=== PATIENT | female | born 2000 | race Caucasian/White ===

== ENCOUNTER 2021-12-22 05:02 | Inpatient (IN) ==
--- NOTE | 2021-12-17 10:36 | Anesthesiology Consultation ---
Date of Service December 17, 2021 Assessment & Plan (1) Encounter for pre-operative examination: COVID screening: Per assessment on 12/17: No known COVID-19 positive contacts or current COVID-19 related symptoms. Travel screen negative. Patient vaccinated. Surgeon arranging preop COVID testing. Awaiting results. 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 History Surgery Operation Date: 12/22/21 07:30 Proposed Procedures p Section in LD - Analilia Benjamin MD s Post Tubal Ligation Labor & Delivery - Analilia Benjamin MD Height/Weight Height: 4 ft 11 in Weight: 94.801 kg Allergies Allergy/AdvReac Type Severity Reaction Status Date / Time No Known Allergies Allergy Verified 12/17/21 09:58 Medications Home Medications Medication Instructions Recorded Confirmed Last Taken prenat.vits,rajendra,[id number] 1 tab PO QAM 08/22/21 12/17/21 Unknown Past Medical History Medical History (Updated 12/17/21 @ 10:36 by Ml [place]) History of COVID-19 Dx 06/2021 > "mild" symptoms at time > resolved Past Family History Family History Other No family history of adverse response to anesthesia Past Surgical History Surgical History Hx of section x2 Social History Smoking Status: Never smoker Do You Dip or Chew Tobacco: No Hx Alcohol Use: No Hx Substance Use: No substance use type: does not use
[2021-12-22] MEDS ORDERED: CITRIC ACID/SODIUM CITRATE 15 ML UDC PO SCH (06:00)
[2021-12-22] MEDS ORDERED: ceFAZolin 2,000 MG in SYRINGE 0 ML IV SCH (06:00)
[2021-12-22] MEDS ORDERED: LACTATED RINGER'S 1,000 ML IV SCH ×2 (06:00→09:29)
[2021-12-22 06:03] LABS: Basophils # (auto) 0.02 K/uL (0-0.2); Basophils % (auto) 0.2 %; Eosinophils # (auto) 0.18 K/uL (0-0.5); Eosinophils % (auto) 2.2 %; Hematocrit (blood only) 33.3 % (37-47); Hemoglobin 11.1 g/dL (12.0-16.0); Immature Granulocytes # (auto) 0.09 K/uL (0.00-0.02); Immature Granulocytes % (auto) 1.1 %; Lymphocytes % (auto) 30.5 %; Mean Corpuscular Hemoglobin 28.5 pg (25-34); Mean Corpuscular Hgb Conc 33.3 g/dL (32-36); Mean Corpuscular Volume 85.6 fL (80-100); Mean Platelet Volume 10.6 fL (7.4-10.4); Monocytes # (auto) 0.59 K/uL (0.11-0.59); Monocytes % (auto) 7.2 %; Neutrophils # (auto) 4.83 K/uL (1.4-6.5); Neutrophils % (auto) 58.8 %; Platelet Count 215 K/uL (130-400); RDW Coefficient of Variation 14.1 % (11.5-14.5); RDW Standard Deviation 43.4 fL (36.4-46.3); Red Blood Count 3.89 M/uL (4.2-5.4); White Blood Count 8.21 K/uL (4.8-10.8)
[2021-12-22] MEDS ORDERED: MoRPHine SULFATE PF 1 MG/ML 10 ML AMP/VIAL ONE (07:20)
--- NOTE | 2021-12-22 07:27 | History & Physical Bridge Note ---
Date of Service December 22, 2021 History & Physical Bridge Note I have examined the patient, reviewed the History & Physical and in the interval since the performance of the History & Physical I have noted the following changes of clinical significance: no changes noted
[2021-12-22] MEDS ORDERED: ONDANSETRON INJ 2 MG/ML 2 ML VIAL IV PRN ×2 (07:33→09:29)
[2021-12-22] MEDS ORDERED: ePHEDrine sulfate 50 MG/ML AMP IV PRN (07:33)
[2021-12-22] MEDS ORDERED: NALOXONE HCL 0.08 MG in SYRINGE 1.8 ML IV PRN (07:33)
[2021-12-22] MEDS ORDERED: NALBUPHINE HCL INJ 10 MG/ML AMP IV PRN (07:33)
[2021-12-22] MEDS ORDERED: LACTATED RINGER'S 500 ML IV PRN (07:33)
[2021-12-22] MEDS ORDERED: diphenhydrAMINE 50 MG/ML VIAL IV PRN (07:33)
[2021-12-22] MEDS ORDERED: NALOXONE HCL 1 MG in SODIUM CHLORIDE 0.9% 1000ML 1,000 ML IV PRN (07:33)
[2021-12-22] MEDS ORDERED: NALOXONE HCL 0.4 MG/1 ML VIAL/CARP IV PRN (07:33)
[2021-12-22] MEDS ORDERED: METOCLOPRAMIDE HCL 20 MG in SODIUM CHLORIDE 0.9% 50 ML IV PRN (07:33)
[2021-12-22] MEDS ORDERED: MoRPHine SULFATE PF 1 MG/ML 10 ML AMP/VIAL INT SPINAL ONE (07:33)
[2021-12-22] MEDS ORDERED: PROMETHAZINE HCL 25 MG in SODIUM CHLORIDE 0.9% 50 ML IV PRN (07:33)
[2021-12-22] MEDS ORDERED: DC INTRASPINAL MORPHINE SCH (07:45)
[2021-12-22] MEDS ORDERED: NO NARCOTICS OR SEDATIVES SCH (07:45)
[2021-12-22] MEDS ORDERED: SODIUM CHLORIDE 0.9% 1000ML 1,000 ML IV SCH (07:45)
[2021-12-22 07:58] LABS: Appearance Urine Cloudy (Clear); Bacteria Urine Automated 2+ (Negative); Bilirubin Urine Negative (Negative); Blood Urine Negative (Negative); Color Urine Yellow; Epithelial Cell Urine Auto >30 /lpf (0-5); Glucose Urine UA Negative (Negative); Ketones Urine Negative (Negative); Leukocyte Esterase Urine 1+ (Negative); Nitrite Urine Negative (Negative); Protein Urine Negative (Negative); RBC Urine Automated 0-4 /hpf (0-4); Specific Gravity Urine 1.023 (1.000-1.030); Urobilinogen Urine Negative (Negative); pH Urine 6.5 (4.5-7.5)
[2021-12-22] MEDS ORDERED: ePHEDrine sulfate 50 MG/ML AMP ONE (08:24)
[2021-12-22] MEDS ORDERED: PHENYLEPHRINE 100MCG/ML 5ML SYR ONE (08:24)
[2021-12-22] MEDS ORDERED: OXYTOCIN 10 UNITS/ML 10ML VIAL ONE (08:24)
--- NOTE | 2021-12-22 08:50 | Operative Report ---
PG Post Operative Report Pre & Post Diagnosis Operation Date: 12/22/21 07:30 Pre-Op Diagnosis: History of Section, Request for Sterilization Post-Op Diagnosis: History of Section, Request for Sterilization I identified the patient and participated in the time-out.: Yes Procedure Operation Date: 12/22/21 07:30 Actual Procedures Repeat low transverse Section in L&D Bilateral Tubal Ligation Surgeon Analilia Benjamin MD Esthetician Spa Cee Estimated Blood Loss 600 Findings Consistent with Post-Op Diagnosis Specimens Placenta, Cord blood, Bilateral portions of fallopian tubes Drains Esqueda Anesthesia Type Spinal Complications none Disposition Accompanied Patient To Recovery: Yes Disposition: L&D Description of Procedure The patient was placed operating table in the supine position with a leftward tilt. She was prepped and draped in standard sterile fashion. The anesthetic was tested and found to be adequate. A time-out was held, identifying correct patient, procedure, positioning and preoperative antibiotics. There were no concerns. A Pfannenstiel skin incision was made with a knife and taken down to the underlying layer of fascia. The fascia was incised in the midline with the knife and taken out laterally with scissors. The superior edge of the fascial incision was grasped, elevated and dissected off the underlying rectus both superiorly and inferiorly. The muscles were bluntly in the midline. The peritoneum was entered bluntly. The incision was then stretched. The bladder retractor was placed. The vesicouterine peritoneum was identified, entered with scissors and taken out laterally with scissors. The bladder flap was created digitally. A hysterotomy incision was created transversely in the lower uterine segment, final entry being accomplished in a blunt manner with the well servicing rig operator's fingers. Clear amniotic fluid was encountered. The well servicing rig operator's hand was used to elevate the head to the hysterotomy. The head was delivered using mild fundal pressure, and the shoulders and body followed without difficulty. The cord was clamped and cut and the was then handed off to the awaiting surveillance agent. Cord blood was obtained. The placenta was Manually extracted. The uterus was exteriorized and cleared of all clot and debris with moistened laparotomy sponges. The hysterotomy incision was repaired in two layers, the first in a running locked layer, the second in an imbricating layer. The ovaries and tubes were seen to be normal bilaterally. After verbal re-consent was confirmed, bilateral tubal ligation was performed using the modified Yonis method. A knuckle of fallopian tube was elevated and doubly suture-ligated, then excised sharply using Metzenbaum scissors. The stumps were blotted and observed for complete hemostasis. The uterus was gently replaced in the abdomen, and the gutters were cleared of clot and debris. A final inspection of the hysterotomy revealed good hemostasis. The rectus muscles were allowed to reapproximate naturally. The fascia was then reapproximated with 1 Vicryl in a running nonlocked manner. The fascia was examined and found to be free of defect following closure. The subcutaneous tissue was copiously irrigated and reapproximated with 0-chromic, then the skin edges were closed with 4-0 monocryl in a subcuticular fashion. A dermabond dressing was applied. The esqueda was found to be draining clear yellow urine at completion of the procedure. I attest to the content of the Intraoperative Record and any orders documented therein. Any exceptions are noted below. I attest to the content of the Intraoperative Record and any orders documented therein. Any exceptions are noted below. OB Procedure Charges [id number] Add on Tubal for C/S
[2021-12-22] MEDS ORDERED: OXYTOCIN 30 UNITS in LACTATED RINGER'S 1,000 ML IV SCH (09:29)
[2021-12-22] MEDS ORDERED: SENNA 8.6 MG TAB PO PRN (09:29)
[2021-12-22] MEDS ORDERED: HYDROCORTISONE ACETATE 25 MG SUPP PR PRN (09:29)
[2021-12-22] MEDS ORDERED: DIPHTHERIA/TETANUS/PERTUSSIS 0.5 ML SYR/VIAL IM ONE (09:29)
[2021-12-22] MEDS ORDERED: MAGNESIUM HYDROXIDE SUSP 30 ML UDC PO PRN (09:29)
[2021-12-22] MEDS ORDERED: BENZOCAINE 20% AER SPR 82.5 GM CAN EXT PRN (09:29)
[2021-12-22] MEDS: HYDROmorphone INJ 0.5 MG/0.5 ML SYR IV PRN ×2 (10:58→22:18)
[2021-12-22] MEDS ORDERED: SODIUM CHLORIDE 0.9% 250 ML IV PRN (11:29)
--- NOTE | 2021-12-22 11:31 | Anesthesiology Progress Note ---
Date of Service December 22, 2021 Anesthesia Post Procedure Vital Signs Vital Signs: Temp Pulse Resp BP Pulse Ox 12/22/21 11:03 75 104/59 L 12/22/21 11:02 82 100 12/22/21 10:57 78 100 12/22/21 10:54 78 110/61 12/22/21 10:52 70 100 12/22/21 10:47 87 100 12/22/21 10:45 36.5 C 20 12/22/21 10:42 96 H 100 12/22/21 10:37 112 H 100 12/22/21 10:33 84 112/63 12/22/21 10:32 82 100 12/22/21 10:27 83 100 12/22/21 10:24 74 111/61 12/22/21 10:22 78 100 12/22/21 10:17 71 100 12/22/21 10:15 18 12/22/21 10:13 77 119/68 12/22/21 10:12 71 100 12/22/21 10:07 67 100 12/22/21 10:04 72 119/70 12/22/21 10:02 67 99 12/22/21 09:57 76 100 12/22/21 09:54 83 131/65 12/22/21 09:52 73 99 12/22/21 09:47 77 99 12/22/21 09:45 36.5 C 20 12/22/21 09:44 79 130/84 12/22/21 09:42 79 100 12/22/21 09:37 88 99 12/22/21 09:36 76 121/66 12/22/21 09:32 78 99 12/22/21 09:27 83 99 12/22/21 09:25 18 12/22/21 09:23 83 100/70 12/22/21 09:22 85 98 12/22/21 09:17 84 98 12/22/21 09:15 18 12/22/21 09:14 76 103/63 12/22/21 09:12 84 98 12/22/21 09:07 85 98 12/22/21 09:05 18 12/22/21 09:03 95 H 115/63 12/22/21 09:02 96 H 98 12/22/21 08:57 93 H 97 12/22/21 08:55 18 12/22/21 08:54 72 109/64 12/22/21 08:52 85 98 12/22/21 08:47 71 97 12/22/21 08:45 36.4 C L 18 12/22/21 08:42 74 105/51 L 97 12/22/21 07:00 36.6 C 74 20 121/72 12/22/21 05:40 36.6 C 18 12/22/21 05:16 36.6 C 86 18 119/76 12/22/21 05:15 86 119/76 Pain Intensity Bilateral Abdomen: Pain Intensity: 4 Transfer of Care Handoff Completed per policy Notes Mental Status: alert / awake / arousable and participated in evaluation Patient Amnestic to Procedure: Yes Nausea / Vomiting: adequately controlled Pain: adequately controlled Airway Patency, RR, SpO2: stable & adequate BP & HR: stable & adequate Hydration State: stable & adequate Anesthetic Complications: no major complications apparent
--- NOTE | 2021-12-22 12:54 | Anesthesiology Progress Note ---
Date of Service December 22, 2021 Anesthesia Post Procedure Vital Signs Vital Signs: Temp Pulse Pulse Resp BP BP Pulse Ox 12/22/21 11:05 36.6 C 79 16 115/76 100 12/22/21 11:03 75 104/59 L 12/22/21 11:02 82 100 12/22/21 10:57 78 100 12/22/21 10:54 78 110/61 12/22/21 10:52 70 100 12/22/21 10:47 87 100 12/22/21 10:45 36.5 C 20 12/22/21 10:42 96 H 100 12/22/21 10:37 112 H 100 12/22/21 10:33 84 112/63 12/22/21 10:32 82 100 12/22/21 10:27 83 100 12/22/21 10:24 74 111/61 12/22/21 10:22 78 100 12/22/21 10:17 71 100 12/22/21 10:15 18 12/22/21 10:13 77 119/68 12/22/21 10:12 71 100 12/22/21 10:07 67 100 12/22/21 10:04 72 119/70 12/22/21 10:02 67 99 12/22/21 09:57 76 100 12/22/21 09:54 83 131/65 12/22/21 09:52 73 99 12/22/21 09:47 77 99 12/22/21 09:45 36.5 C 20 12/22/21 09:44 79 130/84 12/22/21 09:42 79 100 12/22/21 09:37 88 99 12/22/21 09:36 76 121/66 12/22/21 09:32 78 99 12/22/21 09:27 83 99 12/22/21 09:25 18 12/22/21 09:23 83 100/70 12/22/21 09:22 85 98 12/22/21 09:17 84 98 12/22/21 09:15 18 12/22/21 09:14 76 103/63 12/22/21 09:12 84 98 12/22/21 09:07 85 98 12/22/21 09:05 18 12/22/21 09:03 95 H 115/63 12/22/21 09:02 96 H 98 12/22/21 08:57 93 H 97 12/22/21 08:55 18 12/22/21 08:54 72 109/64 12/22/21 08:52 85 98 12/22/21 08:47 71 97 12/22/21 08:45 36.4 C L 18 12/22/21 08:42 74 105/51 L 97 12/22/21 07:00 36.6 C 74 20 121/72 12/22/21 05:40 36.6 C 18 12/22/21 05:16 36.6 C 86 18 119/76 12/22/21 05:15 86 119/76 Pain Intensity Bilateral Abdomen: Pain Intensity: 4 Transfer of Care Handoff Completed per policy Notes Mental Status: alert / awake / arousable and participated in evaluation Patient Amnestic to Procedure: Yes Nausea / Vomiting: adequately controlled Pain: adequately controlled Airway Patency, RR, SpO2: stable & adequate BP & HR: stable & adequate Hydration State: stable & adequate Neuraxial Anesthesia: was administered and sensory block is resolving Anesthetic Complications: no major complications apparent
[2021-12-22] MEDS: SIMETHICONE 80 MG CHEW PO SCH ×3 (13:26→20:15)
[2021-12-22] MEDS: DOCUSATE SODIUM 100 MG CAP PO SCH (20:16)
[2021-12-23] MEDS ORDERED: PROMETHAZINE HCL 25 MG in SODIUM CHLORIDE 0.9% 50 ML IV PRN (01:33)
[2021-12-23] MEDS ORDERED: MEPERIDINE HCL 50 MG/ML CARP IV PRN (01:33)
[2021-12-23] MEDS ORDERED: KETOROLAC 30 MG/ML VIAL IV PRN (01:33)
[2021-12-23] MEDS ORDERED: diphenhydrAMINE 50 MG/ML VIAL IV PRN (01:33)
[2021-12-23] MEDS ORDERED: diphenhydrAMINE Capsule 25 MG CAP PO PRN (01:33)
--- NOTE | 2021-12-23 05:23 | Obstetrical Progress Note ---
Date of Service December 23, 2021 Assessment & Plan (1) Encounter for care and examination after delivery: Plan: Patient is a 21-year-old now female who delivered via at 38 and 4/7 weeks, postoperative day 1. Complications for this include late care. -Continue routine care -Pain controlled currently without any oral medications. Last pain medication was at 22:18 which was Dilaudid IV push -Hemoglobin 10.3 -GBS negative, A+, antibody negative, rubella immune -Encouraged ambulation -Encouraged breast-feeding -Follow-up in [address] Benjamin Admission and Anticipated Discharge Date Admission Date: December 22, 2021 Supervising Physician Co-Signing Physician Notes Resident Physician Supervision Note: I interviewed and examined the patient. Discussed with Dr. Shabazz and agree with findings and plan as documented in the note. Any exceptions or clarifications are listed here: [ ] Documented By: Analilia Benjamin MD, FACOG Subjective Patient is a 21-year-old now female who delivered via at 38 and 4/7 weeks, postoperative day 1. Complications for this include late care. Patient overall doing well. Patient reports that her pain is controlled. Contreras catheter has been removed and patient has been ambulating around the room and urinating without difficulty. Reports eating and drinking without nausea or vomiting. Patient reports she is breast-feeding and is doing so without difficulty. Passing gas but no bowel movement as of yet. Denies fevers, chills, chest pain, shortness of breath, nausea, vomiting, or headache. Patient has no other complaints at this time. Review of Systems Review of Systems: All systems reviewed & are unremarkable except as noted in HPI & below Physical Exam Constitutional: WD/WN, vitals as above Eyes: + anicteric sclerae Neck: normal visual inspection Respiratory: normal respiratory effort, lungs clear to auscultation Cardiovascular: RRR, no murmur, no edema Gastrointestinal (Abdomen): normal bowel sounds, soft, nontender, no hepatosplenomegaly Musculoskeletal: Head/Neck/Chest: normocephalic and head atraumatic Skin: no rashes, warm and dry There is a surgical incision at the inferior abdomen without discharge or surrounding erythema. Neurologic: moves all extremities Psychiatric: A+Ox3, euthymic affect Genitourinary: Uterine fundus palpated 2 cm below the umbilicus, firm Results & Data ([facility]) Vital Signs (Past 12 Hours) Vital Signs Temp Pulse Resp BP Pulse Ox 12/23/21 02:00 17 98 12/23/21 01:00 16 99 12/23/21 00:00 18 99 12/22/21 23:30 36.8 C 90 18 114/73 99 12/22/21 23:00 18 99 12/22/21 22:00 16 99 12/22/21 21:00 17 98 12/22/21 20:00 36.8 C 86 18 104/69 99 12/22/21 19:00 16 99 12/22/21 18:15 16 100
[2021-12-23 07:02] LABS: Basophils # (auto) 0.02 K/uL (0-0.2); Basophils % (auto) 0.2 %; Eosinophils # (auto) 0.15 K/uL (0-0.5); Eosinophils % (auto) 1.7 %; Hematocrit (blood only) 31.2 % (37-47); Hemoglobin 10.3 g/dL (12.0-16.0); Immature Granulocytes # (auto) 0.06 K/uL (0.00-0.02); Immature Granulocytes % (auto) 0.7 %; Lymphocytes # (auto) 1.72 K/uL (1.2-3.4); Lymphocytes % (auto) 19.6 %; Mean Corpuscular Hemoglobin 28.3 pg (25-34); Mean Corpuscular Volume 85.7 fL (80-100); Mean Platelet Volume 10.7 fL (7.4-10.4); Monocytes # (auto) 0.69 K/uL (0.11-0.59); Monocytes % (auto) 7.9 %; Neutrophils # (auto) 6.13 K/uL (1.4-6.5); Neutrophils % (auto) 69.9 %; Platelet Count 152 K/uL (130-400); RDW Coefficient of Variation 14.2 % (11.5-14.5); RDW Standard Deviation 43.8 fL (36.4-46.3); Red Blood Count 3.64 M/uL (4.2-5.4); White Blood Count 8.77 K/uL (4.8-10.8)
[2021-12-23] MEDS: PRENATAL VITAMIN 1 TAB PO SCH (08:31)
[2021-12-23] MEDS: SIMETHICONE 80 MG CHEW PO SCH ×4 (08:31→20:05)
[2021-12-23] MEDS: DOCUSATE SODIUM 100 MG CAP PO SCH ×2 (08:31→20:05)
[2021-12-23] MEDS: FERROUS SULFATE 325 MG TAB PO SCH (08:31)
[2021-12-23] MEDS: IBUPROFEN 600 MG TAB PO PRN ×3 (08:32→18:22)
[2021-12-23] MEDS: oxyCODONE/ACETAMINOPHEN 5mg/325mg TAB PO PRN ×2 (08:33→13:40)
[2021-12-24] MEDS: IBUPROFEN 600 MG TAB PO PRN ×2 (04:30→08:39)
[2021-12-24] MEDS: oxyCODONE/ACETAMINOPHEN 5mg/325mg TAB PO PRN ×2 (04:30→08:37)
[2021-12-24 06:47] LABS: Hemoglobin 9.8 g/dL (12.0-16.0)
--- NOTE | 2021-12-24 07:18 | Obstetrical Progress Note ---
Date of Service December 24, 2021 Assessment & Plan (1) Encounter for care and examination after delivery: stable, desires dc home, instructions reviewed. pdmp checked no issues. instructions reviewed. f/u 6 wk pp check. Day #:: 2 Subjective Ambulation: ambulating normally Voiding: no voiding problems Passing Gas:: Yes Diet Tolerance:: regular diet Lochia:: Small Feeding Type:: breast feeding denies complaints. no cp or sob. feels ready to go home. Constitutional: + as per Subjective / HPI Physical Exam Constitutional WD/WN, vitals as above Respiratory normal respiratory effort, lungs clear to auscultation Cardiovascular Rate/Rhythm: regular rate and regular rhythm Gastrointestinal (Abdomen) Inspection/Auscultation: abdomen normal to inspection and + abdominal surgical incision (c/d/i dermabond) Percussion/Palpation: abdomen soft fundus firm 2 cm below umbilicus Musculoskeletal nt calves tr edema Neurologic grossly normal Psychiatric A+Ox3, euthymic affect Results & Data ([facility]) Vital Signs (Past 12 Hours) Vital Signs Temp Pulse Resp BP 12/24/21 04:00 98.1 F 80 18 125/88 12/23/21 20:00 97.9 F 94 H 18 117/80
[2021-12-24] MEDS: DOCUSATE SODIUM 100 MG CAP PO SCH (08:37)
[2021-12-24] MEDS: FERROUS SULFATE 325 MG TAB PO SCH (08:37)
[2021-12-24] MEDS: PRENATAL VITAMIN 1 TAB PO SCH (08:37)
[2021-12-24] MEDS: SIMETHICONE 80 MG CHEW PO SCH (08:39)
[2021-12-24] MEDS ORDERED: MEASLES, MUMPS & RUBELLA VIRUS VIAL SQ ONE (10:11)
--- NOTE | 2021-12-25 08:27 | Discharge Summary ---
Date of Service December 25, 2021 Discharge Data Consultations 12/22/21 05:04 Consult Anesthesiology Stat Procedures Performed Operation Date: 12/22/21 07:30 Actual Procedures p Section in L&D; Live Female at 0802(Bilateral) - Analilia Benjamin MD s With Bilateral Tubal Ligation - Analilia Benjamin MD Hospital Course (1) Previous delivery affecting , antepartum: Patient admitted for RCS with BTL, which was uncomplicated. D/C to home on POD#2 with usual instructions for 6 week f/u and pain management Rx. Coding Level of Care Code None Diagnoses Previous delivery affecting , antepartum O34.219
== END 2021-12-24 12:15 | disposition home or self-care (01) | DRG 785 ==
LOC: 4S1 05:02 → EDSTATUS 07:30 → 4E2 11:15
PROC: M.PPTLD (2021-12-22 07:30)